=== PATIENT | female | born 1935 | race Hispanic/Latino ===

== ENCOUNTER 2024-01-30 13:56 | Outpatient (CLI) | payer BC | END 2024-01-30 13:57 | disposition home or self-care (01) | LOC: SCSRAD 13:56 | PROVIDERS: ATTEND Nurse Practitioner Family | DX: S99.922A Unspecified injury of left foot, initial encounter (principal); S92.355A Nondisplaced fracture of fifth metatarsal bone, left foot, initial encounter for closed fracture ==